=== PATIENT | female | born 1975 | race Caucasian/White ===

== ENCOUNTER 2017-06-02 13:57 | Emergency (ER) | payer BC ==
[2017-06-02 14:03] VITALS: BP 111/72
--- NOTE | 2017-06-02 15:36 | UC ---
Throat Pain/Nasal Rush HPI - History of Current Complaint Chief Complaint: UCGeneralIllness Stated Complaint: THROAT PAIN Time Seen by Provider: 06/02/17 14:35 Hx Obtained From: Patient Jalen Last Menstrual Period: 05/17/17 Onset/Duration: Gradual Onset - started [address] vomited x 1 and felt a bit better but ST persists and worse today Severity: Moderate Cough: None Associated Signs & Symptoms: Positive: Negative. Negative: Sinus Discomfort, Nasal Discharge, Fever - Allergies/Home Medications Allergies/Adverse Reactions: Allergies Allergy/AdvReac Type Severity Reaction Status Date / Time No Known Allergies Allergy Verified 06/02/17 14:03 PMH/Surg Hx/FS Hx/Imm Hx Previously Healthy: Yes - Surgical History Surgical History: Yes Surgery Procedure, Year, and Place: inguinal hernia; ear tubes; T & A; wisdom teeth - Family History Known Family History: Positive: None - Social History Occupation: Employed Full-time Lives: With Family Alcohol Use: Occasionally Substance Use Type: None Smoking Status (MU): Never Smoked Tobacco - Immunization History Most Recent Influenza Vaccination: fall 2012 Review of Systems Constitutional: Fatigue Skin: Negative ENT: Sore Throat Respiratory: Negative Cardiovascular: Negative Gastrointestinal: Negative Neurovascular: Negative Musculoskeletal: Negative Neurological: Negative, Headache Is Patient Immunocompromised?: No All Other Systems Reviewed And Are Negative: Yes Physical Exam Triage Information Reviewed: Yes Appearance: Well-Appearing, No Pain Distress, Well-Nourished Vital Signs: Initial Vital Signs Temp 98.8 F 06/02/17 13:59 Pulse 72 06/02/17 13:59 Resp 18 06/02/17 13:59 BP 111/72 06/02/17 13:59 Pulse Ox 100 06/02/17 13:59 Vital Signs Reviewed: Yes Eye Exam: Normal Eyes: Positive: Conjunctiva Clear ENT: Positive: Pharyngeal erythema - mild, TMs normal. Negative: Nasal congestion, Tonsillar exudate Neck: Positive: Enlarged Nodes @ - mildly enlarged ant cervical nodes Respiratory Exam: Normal Respiratory: Positive: Lungs clear Cardiovascular Exam: Normal Cardiovascular: Positive: RRR Abdomen Description: Positive: Nontender, No Organomegaly, Soft Bowel Sounds: Positive: Present Psychological Exam: Normal Skin Exam: Normal Throat Pain/Nasal Course/Dx - Differential Dx/Diagnosis Differential Diagnosis/HQI/PQRI: Pharyngitis, Sinusitis, Tonsillitis Provider Diagnoses: pharyngitis Discharge - Discharge Plan Condition: Good Disposition: HOME Patient Education Materials: Pharyngitis (ED) Referrals: Marko Shipley MD [Primary Care Provider] - 2 Days (if no better) Additional Instructions: drink plenty of fluids and rest use ibuprofen 600mg every 6 hours as needed for sore throat
== END 2017-06-02 15:38 | disposition home or self-care (01) ==
LOC: UCEAST 13:57
DX: J02.9 Acute pharyngitis, unspecified (principal)
CPT/HCPCS: 87651; 99211; G0463

== ENCOUNTER 2019-10-12 13:46 | Emergency (ER) | payer BC ==
[2019-10-12 14:28] VITALS: BP 108/68
--- NOTE | 2019-10-12 14:52 | UC ---
Throat Pain/Nasal Rush HPI - HPI Summary HPI Summary: 44 yo female presents with cold symptoms. She tells me that 1 week ago she developed a sore throat that resolved with tea, honey, and OTC remedies. Yesterday she developed sinus congestion and a dry cough. She does not smoke. Denies fever, chills, SOB, chest pain, abdominal pain, n/v/d. - History of Current Complaint Chief Complaint: UCGeneralIllness Stated Complaint: SORE THROAT, COUGH, AND HEADACHE Time Seen by Provider: 10/12/19 14:52 Hx Obtained From: Patient Hx Last Menstrual Period: 09/19/19 Onset/Duration: Gradual Onset Severity: Moderate Pain Intensity: 7 Pain Scale Used: 0-10 Numeric - Allergies/Home Medications Allergies/Adverse Reactions: Allergies Allergy/AdvReac Type Severity Reaction Status Date / Time No Known Allergies Allergy Verified 10/12/19 14:23 PMH/Surg Hx/FS Hx/Imm Hx - Additional Past Medical History Additional PMH: None - Surgical History Surgical History: Yes Surgery Procedure, Year, and Place: inguinal hernia as a baby; ear tubes; T & A ; wisdom teeth - Family History Known Family History: Positive: None - Social History Lives: With Family Alcohol Use: Occasionally Substance Use Type: None Smoking Status (MU): Never Smoked Tobacco - Immunization History Most Recent Influenza Vaccination: fall 2012 Review of Systems All Other Systems Reviewed And Are Negative: No Constitutional: Positive: Negative Skin: Positive: Negative Eyes: Positive: Negative ENT: Positive: Sore Throat - resolved, Nasal Discharge, Sinus Congestion, Sinus Pain/Tenderness Respiratory: Positive: Cough Cardiovascular: Positive: Negative Gastrointestinal: Positive: Negative Neurological: Positive: Negative Psychological: Positive: Negative Physical Exam - Summary Physical Exam Summary: GENERAL: NAD. WDWN. No pain distress. SKIN: No rashes, sores, lesions, or open wounds. HEENT: Head: AT/NC Eyes: EOM intact. Conjunctiva clear without inflammation or discharge. Ears: Hearing grossly normal. TMs intact, no bulging, erythema, or edema. Nose: Nasal mucosa pink and moist. Mild TTP maxillary > frontal sinus. Throat: Posterior oropharynx without exudates, erythema, or tonsillar enlargement. Uvula midline. NECK: Supple. Nontender. No lymphadenopathy. CHEST: CTAB. No r/r/w. No accessory muscle use. Breathing comfortably and in no distress. CV: RRR. Pulses intact. Cap refill <2seconds NEURO: Alert. PSYCH: Age appropriate behavior. Triage Information Reviewed: Yes Vital Signs: Initial Vital Signs Temp 99.1 F 10/12/19 14:23 Pulse 88 10/12/19 14:23 Resp 16 10/12/19 14:23 BP 108/68 10/12/19 14:23 Pulse Ox 97 10/12/19 14:23 Laboratory Tests 10/12/19 15:15 Influenza A (Rapid) Negative Influenza B (Rapid) Negative Vital Signs Reviewed: Yes Throat Pain/Nasal Course/Dx - Course Course Of Treatment: POC flu negative. Suspect viral illness - recommend continuing OTC supportive care and will rx for albuterol and mucinex. - Differential Dx/Diagnosis Provider Diagnosis: Viral illness Discharge ED - Sign-Out/Discharge Documenting (check all that apply): Patient Departure All imaging exams completed and their final reports reviewed: No Studies - Discharge Plan Condition: Stable Disposition: HOME Prescriptions: Albuterol HFA INHALER* [Ventolin HFA Inhaler*] 1 - 2 puff INH Q6H PRN #1 mdi PRN Reason: Cough guaiFENesin ER TAB [Mucinex*] 600 mg PO BID #14 tab.er Patient Education Materials: Cold Symptoms (ED) Referrals: Marko Shipley MD [Primary Care Provider] - Additional Instructions: Your symptoms are likely from a viral infection. Viral infections do not respond to antibiotics and are limited to the treatment of symptoms. Viral infections typically run their course in 7-10 days. Drink plenty of fluids, especially if you are running any fever. Use salt water gargles several times a day. Take over the counter acetaminophen (Tylenol) or ibuprofen (Advil, Motrin) according to directions as needed for pain or fever. You may also use Chloraseptic spray or Cepacol lonzenges according to directions which contain a numbing medication and can provide some temporary relief from a sore throat. Return here or follow up with your primary care provider in 7 days if symptoms persist. - Billing Disposition and Condition Condition: STABLE Disposition: Home
[2019-10-12 15:27] LABS: Influenza A Molecular NEGATIVE (Negative); Influenza B Molecular NEGATIVE (Negative)
== END 2019-10-12 15:40 | disposition home or self-care (01) ==
LOC: UCEAST 13:46
DX: B34.9 Viral infection, unspecified (principal); J34.89 Other specified disorders of nose and nasal sinuses; R05 Cough; J02.9 Acute pharyngitis, unspecified
CPT/HCPCS: 99211; G0463